=== PATIENT | male | born 1970 | race Caucasian/White ===

== ENCOUNTER 2019-05-11 17:38 | Emergency (ER) | payer SELFPAY ==
[2019-05-11 17:44] VITALS: BP 121/87; PULSE 66; RESP 16; TEMP 36.5; O2SAT 98
--- NOTE | 2019-05-11 18:03 | ED.GENADUL_ITS ---
Discharge Plan Disposition Patient Disposition: HOME Condition: Stable Discharge Details Chief Complaint: Diabetes Clinical Impression: Type 2 diabetes mellitus Primary Care Provider: None,None ED Provider: Daniel Mason Home Meds and New Rx's Prescriptions: New glyburide 2.5 mg tablet 2.5 mg PO DAILY Qty: 30 RF: 0 No Action Sensolin 500 mg PO TID RF: 0 Discharge Instructions Additional Instructions: I have placed you on our follow up list to get set up with a primary care provider if you develop fevers, difficulty breathing, feel more ill return to the emergency department Medical Decision Making 49 yo male who has hx of t2dm comes in with high blood sugars for 2 days. He moved here from [place] and finished abx for dental abscess 2 weeks ago per pt and has no complaints. HE noticed his sugar levels have been high so came here and it is 400 here. He has no other symptoms. He denies chest pain, sob, fevers. He used to be on metformin years ago but caused stiff hsoulders per pt so was controlling it with his diet/lifestyle. Given lack of symptoms do not feel acute workup for his known t2dm is indicated. Had discussion about starting meds before seeing a pcp here and he decided he would like to so will start glyburide and have him f/u with pcp in this area within 1-2 weeks, return precautions given Differential Diagnosis diabetes, hyperglycemia HPI General Mode of arrival: ambulatory . Date/Time Provider Initiated Documentation: 05/11/19 17:53 . Limitations to Documentation: no limitations . Information obtained by: patient . History of Present Illness 49 year old M presents to the emergency department with the chief complaint of high sugars, Patient reports no radiation. Patient started experiencing this day(s) (2) and it has been constant. No relieving factors improve symptom(s), No exacerbating factors reported . Patient notes no other symptoms.. Related Data Home Medications Medication Instructions Recorded Confirmed Sensolin 500 mg PO TID 05/11/19 glyburide 2.5 mg PO DAILY #30 tab 05/11/19 Previous Rx's Medication Instructions Recorded glyburide 2.5 mg PO DAILY #30 tab 05/11/19 Allergies Allergy/AdvReac Type Severity Reaction Status Date / Time Penicillins Allergy Intermediate Hives Unverified 05/11/19 17:52 metformin AdvReac Intermediate frozen Unverified 05/11/19 17:52 shoulders General Stated Complaint: Diabetes ALEXUS: 3 Review of Systems Review of Systems All systems reviewed & are unremarkable except as noted in HPI and below Constitutional Denies chills, Denies fever(s) and Denies weakness Cardiovascular Denies chest pain and Denies dyspnea Respiratory Denies cough and Denies dyspnea Gastrointestinal Denies abdominal pain, Denies nausea and Denies vomiting Musculoskeletal Denies joint swelling Neurologic Denies weakness Endocrine Denies heat intolerance PFSH Social History Smoking/Tobacco Use Status: Never Drug use: Never Substance use type: does not use Do you feel safe at home: Yes Do you feel safe in your relationship?: Yes Exam Const General: no acute distress Orientation: alert HENMT Head: normal to inspection Ears: external ears normal General nose exam: external nose normal Mouth: moist mucous membranes Eyes General: appearance normal, both eyes and all related structures Neck Neck: normal visual inspection Resp Effort & Inspection: normal respiratory effort and able to speak in complete sentences Cardio Rate: regular rate Skin General skin exam: no rashes or lesions noted Neuro General: alert and oriented x3 Extrem General: normal to inspection Psych Mental Status: mental status grossly normal Course Vital Signs Temperature 36.5 C 05/11/19 17:44 Pulse 66 05/11/19 17:44 Respiratory Rate 16 05/11/19 17:44 Blood Pressure 121/87 05/11/19 17:44 Pulse Oximetry 98 05/11/19 17:44 Temperature 36.5 C 05/11/19 17:44 Temperature Source Skin 05/11/19 17:44 Pulse 66 05/11/19 17:44 Respiratory Rate 16 05/11/19 17:44 Respiratory Effort 05/11/19 17:56 Blood Pressure 121/87 05/11/19 17:44 Blood Pressure Position Sitting 05/11/19 17:44 Pulse Oximetry 98 05/11/19 17:44 Oxygen Delivery Method Room Air 05/11/19 17:44 Oxygen Flow Rate 0 05/11/19 17:44 Pain Level 0 05/11/19 17:44 Comment 05/11/19 17:44
--- NOTE | 2019-05-11 19:45 | NUR.NOTE ---
faxed referal05/11/19Nursing Note:
== END 2019-05-11 18:10 | disposition home or self-care (01) ==
PROVIDERS: Emergency Provider Emergency Medicine
DX: E11.65 Type 2 diabetes mellitus with hyperglycemia (principal); Z79.84 Long term (current) use of oral hypoglycemic drugs
CPT/HCPCS: 36415; 82962; 99283

== ENCOUNTER 2019-05-31 14:29 | Outpatient (REF) | payer SELFPAY ==
[2019-06-01 05:18] LABS: Abs Immature Grans 0.02 k/cumm (0.0-0.09); Absolute Basophil Count 0.02 k/cumm (0.0-0.2); Absolute Eosinophil Count 0.03 k/cumm (0.0-0.7); Absolute Lymphocyte Count 1.77 k/cumm (1.2-3.4); Absolute Monocyte Count 0.44 k/cumm (0.11-0.7); Absolute Neutrophil Count 2.88 k/cumm (1.2-6.7); Basophils % 0.4; Eosinophils % 0.6; HCT 41.2 % (40.0-50.0); HGB 14.3 g/dL (13.5-17.5); Immature Grans % 0.4; Lymphocytes % 34.3; Mean Corp. HGB Concentration 34.7 g/dL (32.0-36.0); Mean Corpuscular Hemoglobin 30.7 pg (27.0-33.0); Mean Corpuscular Volume 88.4 fL (80-95); Mean Platelet Volume 13.5 fL (8.0-11.0); Monocytes % 8.5; Neutrophils % 55.8; Platelet Count 152 x1000/uL (130-400); RBC 4.66 m/cumm (4.50-6.00); RBC Distribution Width 12.9 % (11.8-14.1); White Blood Cell Count 5.16 k/cumm (4.4-10.8)
[2019-06-01 05:54] LABS: ALT 48 U/L (16-63); AST 19 U/L (15-37); Albumin 3.9 g/dL (3.4-5.0); Alkaline Phosphatase 89 U/L (46-116); Anion Gap 9.8 mmol/L (3-11); BUN 14 mg/dL (7-18); Bilirubin, Total 0.4 mg/dL (0.2-1.0); CO2 26.2 mmol/L (21.0-32.0); CREATININE 0.85 mg/dL (0.70-1.30); Calculated LDL 110 mg/dL; Chloride 105 mmol/L (98-107); Cholesterol 217 mg/dL (50-200); Glucose 317 mg/dL (70-100); HDL Cholesterol 66 mg/dL (40-60); Potassium 4.2 mmol/L (3.5-5.1); Sodium 141 mmol/L (136-145); Total Protein 6.9 g/dL (6.4-8.2); Triglyceride 206 mg/dL (30-150)
[2019-06-02 13:47] LABS: C-Peptide 3.9 ng/mL (1.1 - 4.4)
== END 2019-05-31 14:49 ==
LOC: NCHCN 14:29
PROVIDERS: PCP Specialist/Technologist Athletic Trainer; Visit Provider Specialist/Technologist Athletic Trainer
DX: E11.9 Type 2 diabetes mellitus without complications (principal); K04.7 Periapical abscess without sinus
CPT/HCPCS: 80053; 80061; 84681; 85025

== ENCOUNTER 2019-10-17 14:43 | Outpatient (REF) | payer OTHER, SELFPAY ==
[2019-10-17 20:56] LABS: ALT 32 U/L (16-63); AST 16 U/L (15-37); Albumin 4.4 g/dL (3.4-5.0); Alkaline Phosphatase 76 U/L (46-116); Anion Gap 8.7 mmol/L (3-11); BUN 12 mg/dL (7-18); Bilirubin, Total 0.5 mg/dL (0.2-1.0); CO2 27.3 mmol/L (21.0-32.0); CREATININE 0.81 mg/dL (0.70-1.30); Calcium 9.3 mg/dL (8.5-10.1); Chloride 104 mmol/L (98-107); Glucose 297 mg/dL (74-106); Potassium 4.6 mmol/L (3.5-5.1); Sodium 140 mmol/L (136-145); TSH (W/Ref FT4) 0.72 uIU/mL (0.36-3.74); Total Protein 7.3 g/dL (6.4-8.2)
[2019-10-19 10:17] LABS: PSA, Screening 1.5 ng/mL (0.0-3.5)
[2019-10-20 10:42] LABS: Testosterone, Total 471 ng/dL (240-950)
== END 2019-10-17 15:03 ==
LOC: NCHCN 14:43
PROVIDERS: PCP Specialist/Technologist Athletic Trainer; Visit Provider Specialist/Technologist Athletic Trainer
DX: N52.9 Male erectile dysfunction, unspecified (principal); E11.9 Type 2 diabetes mellitus without complications; Z12.5 Encounter for screening for malignant neoplasm of prostate
CPT/HCPCS: 80053; 84153; 84403; 84443

== ENCOUNTER 2020-12-04 09:12 | Outpatient (CLI) | payer OTHER, SELFPAY ==
[2020-12-05 15:42] LABS: COVID-19 RT-PCR UVMMC Result Negative (Negative)
== END 2020-12-04 09:13 | disposition home or self-care (01) ==
PROVIDERS: PCP Family Medicine; Visit Provider Family Medicine
DX: Z20.822 Contact with and (suspected) exposure to COVID-19 (principal)
CPT/HCPCS: U0003